=== PATIENT | female | born 1990 | race Caucasian/White ===

== ENCOUNTER 2016-04-06 22:13 | Outpatient (CLI) | payer OTHER ==
[~2016-04-06] VITALS: Ht 160 cm; Wt 87.0 kg
[~2016-04-06 22:13] MED LIST: BACTRIM,SEPT1 TABLET PO; BENTYL20 MG PO; BIOTIN1000 MICRO PO; BIRTH CONTROL PILLS; BUSPAR10 MG PO; BUSPAR15 MG PO; CIPRO500 MG PO; CRANBERRY TABL1 EACH PO; ERRIN0.35 MG PO; FLEXERIL5 MG PO; GEODON20 MG PO; LISINOPRIL10 MG PO; METFORMIN HCL500 MG PO; MOTRIN600 MG PO; NAPROSYN500 MG PO; PERCOCET 5/31 TABLET PO; PRENATA CHEWAB1 EACH PO; SAPHRIS5 MG PO; SPRINTEC1 EACH PO; TRAMADOL HCL50 MG PO; ULTRAM50 MG PO; VALIUM5 MG PO; VICODIN 5-3001 EACH PO; ZOFRAN ODT4 MG PO; ZYRTEC10 M3 PO; ZYRTEC10 MG PO
[2016-04-06 22:26] VITALS: BP 151/97
[2016-04-06 22:30] VITALS: BP 151/97
[2016-04-06 23:00] VITALS: BP 151/97
[2016-04-06 23:17] LABS: BASOPHIL COUNT 0.1 K/uL (0-0.1); EOSINOPHIL (%) 1.8 % (0-5); EOSINOPHIL COUNT 0.3 K/uL (0-0.3); IMMATURE GRANULOCYTE (%) 0.1 % (0.0-0.7); IMMATURE GRANULOCYTE COUNT 0.2 K/uL; MCH 29.6 PG (29.0-34.0); MCHC 35.1 G/DL (30.0-36.0); MCV 84.2 FL (83-99); MEAN PLAT.VOLUME 10.3 uM^3 (9.5-12.4); MONOCYTE (%) 6.1 % (3-12); MONOCYTE COUNT 0.9 K/uL (0-0.8); NEUTROPHIL (%) 71.2 % (45-76); NEUTROPHIL COUNT 10.5 K/uL (1.8-6.4); PLATELET COUNT 322 K/uL (156-360); RBC DIS.WIDTH-SD 39.5 % (39-53); RED BLOOD COUNT 4.87 M/uL (3.80-5.20); WHITE BLOOD COUNT 14.8 K/uL (4.1-10.2)
[2016-04-06 23:25] LABS: CHLORIDE 105 mEq/L (99-109); POTASSIUM 3.9 mEq/L (3.7-5.4); SODIUM 135 mEq/L (136-147)
[2016-04-06 23:28] LABS: GLUCOSE 75 mg/dL (70-99)
[2016-04-06 23:29] LABS: ANION GAP 10 MEQ/L (2-14); TOTAL BILIRUBIN 0.2 mg/dL (0.0-1.0)
[2016-04-06 23:31] LABS: ALKALINE PHOSPHATASE 224 IU/L (3-129); GFR ESTIMATE (CALCULATED) > 59 mL/min/
[2016-04-06 23:32] LABS: UREA NITROGEN (BUN) 11 mg/dL (9-23)
[2016-04-06 23:34] LABS: URIC ACID 5.8 mg/dL (3.1-9.2)
[2016-04-06 23:49] VITALS: BP 141/83
[2016-04-07 00:34] LABS: ADD MIUA? YES; BILIRUBIN NEGATIVE; BLOOD SMALL; COLOR YELLOW ((YELLOW)); GLUCOSE (STRIP) NEGATIVE; KETONES TRACE; LEUKOCYTES TRACE; NITRITE NEGATIVE; PH, URINE 5.5 (5-8); PROTEIN (STRIP) NEGATIVE; SPECIFIC GRAVITY 1.015 (1.000-1.030); UROBILINOGEN 0.2 MG/DL (0.2-1.0)
[2016-04-07 00:45] VITALS: BP 137/89
[2016-04-07 00:49] LABS: BACTERIA RARE /HPF; EPITHELIAL CELLS RARE /HPF; MUCUS TRACE /LPF; RED BLOOD CELLS 0-5 /HPF (0-5); UCUL ADDED? NO; WHITE BLOOD CELLS 0-5 /HPF (0-5)
[2016-04-07 01:53] VITALS: BP 144/87
[2016-04-07 02:56] VITALS: BP 155/90
[2016-04-07 03:49] VITALS: BP 126/71
[2016-04-07 04:57] VITALS: BP 132/77
[2016-04-07 05:52] VITALS: BP 141/86
[2016-04-07 06:23] LABS: UR CREATININE CONCENTRATION 67.5 MG/DL
[2016-04-07 06:26] LABS: LACTATE DEHYDROGENASE 235 IU/L (20-246); SAMPLE HEMOLYSIS CHECK 0; SAMPLE ICTERIC CHECK 0; SAMPLE LIPEMIA CHECK 0
== END 2016-04-07 07:20 | disposition home or self-care (01) ==
LOC: LDRP-OP → 2WEST 22:14 → LDRP-OP 05-24 12:05
PROVIDERS: Advanced Practice Midwife
DX: O47.1 False labor at or after 37 completed weeks of gestation (principal); O99.89 Other specified diseases and conditions complicating pregnancy, childbirth and the puerperium; Z3A.37 37 weeks gestation of pregnancy
CPT/HCPCS: 59025; 80053; 81003; 82570; 83615; 84156; 84550; 85025; G0378

== ENCOUNTER 2016-04-12 13:04 | Outpatient (CLI) | payer OTHER ==
[~2016-04-12] VITALS: Ht 160 cm; Wt 83.6 kg
[2016-04-12 13:21] VITALS: BP 147/95
[2016-04-12 13:55] VITALS: BP 144/85
[2016-04-12 14:16] VITALS: BP 129/80
[2016-04-13] MEDS ORDERED: METFORMIN HCL1000 MG PO (07:50)
== END 2016-04-12 14:50 | disposition home or self-care (01) ==
LOC: LDRP-OP 13:04 → 2WEST 13:05 → LDRP-OP 05-24 08:06
DX: O99.89 Other specified diseases and conditions complicating pregnancy, childbirth and the puerperium (principal); Z3A.38 38 weeks gestation of pregnancy
CPT/HCPCS: 59025; G0378

== ENCOUNTER 2016-04-13 06:21 | Inpatient (IN) | payer OTHER ==
[2016-04-12 14:16] VITALS: BP 129/80
[~2016-04-13] VITALS: Ht 160 cm; Wt 84.0 kg
[2016-04-13 07:27] LABS: BASOPHIL COUNT 0.1 K/uL (0-0.1); EOSINOPHIL (%) 1.1 % (0-5); EOSINOPHIL COUNT 0.2 K/uL (0-0.3); HEMATOCRIT 44.9 % (36.0-46.0); IMMATURE GRANULOCYTE (%) 0.3 % (0.0-0.7); IMMATURE GRANULOCYTE COUNT 0.1 K/uL; LYMPHOCYTE COUNT 2.9 K/uL (1.0-2.8); MCH 30.4 PG (29.0-34.0); MCHC 35.9 G/DL (30.0-36.0); MCV 84.9 FL (83-99); MEAN PLAT.VOLUME 11.2 uM^3 (9.5-12.4); MONOCYTE (%) 5.8 % (3-12); MONOCYTE COUNT 1.2 K/uL (0-0.8); NEUTROPHIL (%) 77.9 % (45-76); NEUTROPHIL COUNT 15.8 K/uL (1.8-6.4); PLATELET COUNT 379 K/uL (156-360); RBC DIS.WIDTH-CV 13.2 % (11.8-14.6); RBC DIS.WIDTH-SD 40.2 % (39-53); RED BLOOD COUNT 5.29 M/uL (3.80-5.20)
[2016-04-13 07:38] LABS: WHITE BLOOD COUNT 20.3 K/uL (4.1-10.2)
[2016-04-13 07:43] LABS: ALKALINE PHOSPHATASE 224 IU/L (3-129); ANION GAP 17 MEQ/L (2-14); CHLORIDE 104 MEQ/L (99-109); GFR ESTIMATE (CALCULATED) > 59 mL/min/; GLUCOSE 92 mg/dL (70-99); POTASSIUM 3.9 MEQ/L (3.7-5.4); SAMPLE HEMOLYSIS CHECK 0; SAMPLE ICTERIC CHECK 0; SAMPLE LIPEMIA CHECK 0; SODIUM 136 MEQ/L (136-147); TOTAL BILIRUBIN 0.3 MG/DL (0.0-1.0); UREA NITROGEN (BUN) 11 mg/dL (9-23)
[2016-04-13] MEDS ORDERED: METFORMIN HCL1000 MG PO (07:50)
[2016-04-13 08:05] VITALS: BP 173/105
[2016-04-13 08:28] VITALS: BP 182/90
[2016-04-13 09:47] LABS: BICARBONATE 23.1 mEq/L (22-26); CARBOXY HGB 2.3 % (0-5); METHEMOGLOBIN 1.8 % (0-1.5); PCO2 48 mm Hg (35-45); PO2 < 28 mm Hg (80-100); pH 7.29 (7.35-7.45)
[2016-04-13 09:48] LABS: COMMENTS - BLOOD GASES C+; SITE UMBILACAL ARTERY
[2016-04-13 09:51] LABS: BASE EXCESS -4.8 mEq/L (-3 to +3); BICARBONATE 20.5 mEq/L (22-26); METHEMOGLOBIN 1.5 % (0-1.5); PCO2 38 mm Hg (35-45); PO2 < 28 mm Hg (80-100); pH 7.34 (7.35-7.45)
[2016-04-13 09:52] LABS: COMMENTS - BLOOD GASES C+; SITE UMBILICAL VAIN
[2016-04-13 10:55] LABS: POINT-OF-CARE METER ID UU13113675
[2016-04-13 13:44] LABS: HEMATOCRIT 39.7 % (36.0-46.0); MCV 83.9 FL (83-99)
[2016-04-13 14:31] VITALS: BP 143/81
[2016-04-13 15:39] VITALS: BP 134/88
[2016-04-13 19:10] VITALS: BP 148/89
[2016-04-13 22:40] VITALS: BP 129/69
[2016-04-14 02:59] VITALS: BP 122/73
[2016-04-14 03:51] LABS: UR CREATININE CONCENTRATION 132.7 MG/DL
[2016-04-14 07:29] VITALS: BP 141/81
[2016-04-14 08:52] LABS: EOSINOPHIL (%) 0.9 % (0-5); EOSINOPHIL COUNT 0.1 K/uL (0-0.3); HEMATOCRIT 31.9 % (36.0-46.0); IMMATURE GRANULOCYTE (%) 0.3 % (0.0-0.7); LYMPHOCYTE COUNT 1.6 K/uL (1.0-2.8); MCH 29.6 PG (29.0-34.0); MCHC 34.5 G/DL (30.0-36.0); MEAN PLAT.VOLUME 10.4 uM^3 (9.5-12.4); MONOCYTE (%) 4.7 % (3-12); MONOCYTE COUNT 0.6 K/uL (0-0.8); NEUTROPHIL (%) 82.3 % (45-76); RBC DIS.WIDTH-CV 13.4 % (11.8-14.6); RBC DIS.WIDTH-SD 41.8 % (39-53)
[2016-04-14 08:56] LABS: PLATELET COUNT 232 K/uL (156-360); RED BLOOD COUNT 3.71 M/uL (3.80-5.20); WHITE BLOOD COUNT 13.3 K/uL (4.1-10.2)
[2016-04-14 10:33] VITALS: BP 140/88
[2016-04-14 14:41] VITALS: BP 143/87
[2016-04-14 19:08] VITALS: BP 137/76
[2016-04-14 22:06] VITALS: BP 156/83
[2016-04-15 03:07] VITALS: BP 141/78
[2016-04-15 07:21] VITALS: BP 147/80; BP 149/93
[2016-04-15 08:40] VITALS: BP 153/77
[2016-04-15] MEDS ORDERED: ENDOCET 5-3251 EACH PO (09:47)
[2016-04-15] MEDS ORDERED: METFORMIN HCL500 MG PO (09:47)
[2016-04-15] MEDS ORDERED: IBUPROFEN800 MG PO (09:47)
[2016-04-15 10:22] LABS: POINT-OF-CARE METER ID UU13113692
[2016-04-15 10:22] LABS: POINT-OF-CARE METER ID UU13113692
[2016-04-15 10:22] LABS: POINT-OF-CARE METER ID UU13113692
[2016-04-15 10:22] LABS: POINT-OF-CARE METER ID UU13113692
[2016-04-15 10:23] LABS: POINT-OF-CARE METER ID UU13113692
[2016-04-15 10:23] LABS: POINT-OF-CARE METER ID UU13113692
[2016-04-15 10:23] LABS: POINT-OF-CARE METER ID UU13113692
[2016-04-15 10:27] LABS: POINT-OF-CARE METER ID UU13113692; POINT-OF-CARE USER ID 608261309
== END 2016-04-15 11:25 | disposition home or self-care (01) | DRG 765 ==
LOC: LDRP-OP 06:21 → 2WEST 06:22 → LDRP-OP 05-24 00:02
PROVIDERS: Advanced Practice Midwife; Obstetrics & Gynecology
DX: O24.12 Pre-existing type 2 diabetes mellitus, in childbirth (principal); O13.3 Gestational [pregnancy-induced] hypertension without significant proteinuria, third trimester; E11.40 Type 2 diabetes mellitus with diabetic neuropathy, unspecified; O76 Abnormality in fetal heart rate and rhythm complicating labor and delivery; O99.214 Obesity complicating childbirth; O99.334 Smoking (tobacco) complicating childbirth; O99.344 Other mental disorders complicating childbirth; Z3A.38 38 weeks gestation of pregnancy; Z37.0 Single live birth; F41.9 Anxiety disorder, unspecified; F32.9 Major depressive disorder, single episode, unspecified; O75.89 Other specified complications of labor and delivery; M51.36 Other intervertebral disc degeneration, lumbar region; M79.7 Fibromyalgia; O99.354 Diseases of the nervous system complicating childbirth; G25.81 Restless legs syndrome
CPT/HCPCS: 36600; 74000; 80053; 82570; 82803; 82948; 84156; 85014; 85018; 85025; J0456; J0595; J0690; J1170; J1815; J1885; J2175; J2270; J2405; J3010; J7120

== ENCOUNTER 2017-03-01 18:22 | Emergency (ER) | payer SELFPAY ==
[~2017-03-01] VITALS: Ht 160 cm; Wt 87.4 kg
[~2017-03-01 18:22] MED LIST changes: +ENDOCET 5-3251 EACH PO; +IBUPROFEN800 MG PO; +METFORMIN HCL1000 MG PO
[2017-03-01 19:10] LABS: APPEARANCE CLEAR ((CLEAR)); BILIRUBIN NEGATIVE; BLOOD NEGATIVE; COLOR YELLOW ((YELLOW)); GLUCOSE (STRIP) NEGATIVE; KETONES NEGATIVE; LEUKOCYTES NEGATIVE; NITRITE NEGATIVE; PROTEIN (STRIP) NEGATIVE; SPECIFIC GRAVITY 1.026 (1.000-1.030)
[2017-03-01] MEDS ORDERED: NAPROSYN500 MG PO (20:15)
[2017-03-01 20:32] VITALS: BP 121/79
== END 2017-03-01 20:33 | disposition home or self-care (01) ==
LOC: EME 18:22
PROVIDERS: Emergency Medicine
DX: M25.561 Pain in right knee (principal); R30.0 Dysuria; M79.7 Fibromyalgia; I10 Essential (primary) hypertension; E11.9 Type 2 diabetes mellitus without complications; F41.9 Anxiety disorder, unspecified; F32.9 Major depressive disorder, single episode, unspecified; F31.9 Bipolar disorder, unspecified; K58.9 Irritable bowel syndrome, unspecified; F17.200 Nicotine dependence, unspecified, uncomplicated; Z90.49 Acquired absence of other specified parts of digestive tract; Z88.0 Allergy status to penicillin
CPT/HCPCS: 73564; 81003; 87086; 99281; 99284